=== PATIENT | female | born 1995 | race American Indian/Alaskan Native ===

== ENCOUNTER 2017-01-19 08:40 | Emergency (ER) | payer MEDICAID ==
[2017-01-19 09:35] LABS: Basophils % (Auto) 0.7 % (0.0-1.8); Eosinophils % (Auto) 1.7 % (0.0-4.3); Hemoglobin 13.1 gm/dl (10.1-14.3); Mean Corpuscular HGB Conc 34 % (30-34); Mean Corpuscular Hemoglobin 28 pg (28-32); Mean Corpuscular Volume 84 fl (79-97); Platelet Count 193 K/mm3 (140-440); Red Blood Count 4.66 M/mm3 (3.65-5.03); Red Cell Distribution Width 13.7 % (13.2-15.2); White Blood Count 9.8 K/mm3 (4.5-11.0)
[2017-01-19 09:36] LABS: Bilirubin,Urine NEG (Negative); Blood,Urine NEG (Negative); Ketones,Urine NEG (Negative); Leukocyte Esterase,Urine TR (Negative); Mucus,Urine 3+ /HPF; Nitrite,Urine NEG (Negative); Urobilinogen,Urine < 2.0 mg/dL (<2.0)
[2017-01-19 09:45] LABS: Alanine Aminotransferase 16 units/L (7-56); Albumin 4.3 g/dL (3.9-5); Albumin/Globulin Ratio 1.3 %; Alkaline Phosphatase 70 units/L (35-129); Anion Gap 16 mmol/L; BUN/Creatinine Ratio 17; Blood Urea Nitrogen 10 mg/dL (7-17); Calcium 9.2 mg/dL (8.4-10.2); Carbon Dioxide 24 mmol/L (22-30); Chloride 102.5 mmol/L (98-107); Glucose 70 mg/dL (65-100); Lipase 32 units/L (13-60); Potassium 3.8 mmol/L (3.6-5.0); Sodium 139 mmol/L (137-145); Total Protein 7.6 g/dL (6.3-8.2)
[2017-01-19] MEDS ORDERED: TORADOL IM ONE (18:57)
[2017-01-19] MEDS ORDERED: ZOFRAN IM ONE (18:57)
--- NOTE | 2017-01-19 19:02 | Emergency Department Report ---
ED Abdominal Pain HPI - General Chief Complaint: Abdominal Pain Stated Complaint: ABDOMINAL PAIN, NAUSEA, HEADACHE Time Seen by Provider: 01/19/17 18:22 Source: patient Mode of arrival: Ambulatory Limitations: No Limitations - History of Present Illness Initial Comments: Patient is 21 years old female with no significant past medical history came today with lower abdominal pain nausea vomiting and dysuria for the last 4 days. Patient denied any fever or diarrhea. MD Complaint: abdominal pain Location: suprapubic Radiation: none Migration to: no migration Severity: mild Severity scale (0 -10): 3 Quality: fullness, sharp Associated Symptoms: nausea, vomiting - Related Data Previous Rx's Medication Instructions Recorded Last Taken Type Ibuprofen [Motrin] 800 mg PO Q8HR PRN #14 tablet 01/15/16 Unknown Rx traMADol [Ultram 50 MG tab] 50 mg PO Q6HR PRN #12 tablet 01/15/16 Unknown Rx Allergies Allergy/AdvReac Type Severity Reaction Status Date / Time No Known Allergies Allergy Verified 06/01/15 20:20 ED Review of Systems ROS: Stated complaint: ABDOMINAL PAIN, NAUSEA, HEADACHE Other details as noted in HPI Comment: All other systems reviewed and negative Constitutional: denies: chills, fever Respiratory: denies: cough, orthopnea, shortness of breath, SOB with exertion, SOB at rest Gastrointestinal: abdominal pain, nausea, vomiting. denies: diarrhea, constipation, hematemesis, melena, hematochezia Genitourinary: urgency, dysuria, frequency Skin: denies: rash, lesions Neurological: denies: headache, weakness ED Past Medical Hx - Past Medical History Previous Medical History?: No Hx Headaches / Migraines: Yes - Surgical History Past Surgical History?: No - Social History Smoking Status: Current Every Day Smoker Substance Use Type: None - Medications Home Medications: Home Medications Medication Instructions Recorded Confirmed Last Taken Type Ibuprofen [Motrin] 800 mg PO Q8HR PRN #14 tablet 01/15/16 Unknown Rx traMADol [Ultram 50 MG tab] 50 mg PO Q6HR PRN #12 tablet 01/15/16 Unknown Rx ED Physical Exam - General Limitations: No Limitations General appearance: alert, in no apparent distress - Head Head exam: Present: normocephalic - Eye Eye exam: Present: normal appearance - ENT ENT exam: Present: normal exam, mucous membranes moist - Neck Neck exam: Present: full ROM. Absent: tenderness, meningismus, lymphadenopathy , thyromegaly - Respiratory Respiratory exam: Present: normal lung sounds bilaterally. Absent: respiratory distress, wheezes, rales, rhonchi, chest wall tenderness, accessory muscle use, decreased breath sounds, prolonged expiratory - Cardiovascular Cardiovascular Exam: Present: regular rate, normal rhythm, normal heart sounds - GI/Abdominal GI/Abdominal exam: Present: soft, normal bowel sounds. Absent: distended, tenderness, guarding, rebound, rigid, organomegaly, mass, bruit, pulsatile mass - Extremities Exam Extremities exam: Present: normal inspection, full ROM, normal capillary refill - Back Exam Back exam: Present: normal inspection. Absent: tenderness, CVA tenderness (R), CVA tenderness (L) - Neurological Exam Neurological exam: Present: alert, oriented X3, CN II-XII intact, normal gait - Skin Skin exam: Present: warm, intact, normal color ED Course Vital Signs 01/19/17 08:49 Temperature 98.4 F Pulse Rate 75 Respiratory 18 Rate Blood Pressure 109/63 O2 Sat by Pulse 100 Oximetry ED Medical Decision Making - Lab Data Result diagrams: 01/19/17 09:05 01/19/17 09:05 Critical care attestation.: If time is entered above; I have spent that time in minutes in the direct care of this critically ill patient, excluding procedure time. ED Disposition Clinical Impression: Abdominal pain, UTI (urinary tract infection), Vomiting Disposition: -01 TO HOME OR SELFCARE Is pt being admited?: No Condition: Stable Instructions: Abdominal Pain (ED), Urinary Tract Infection in Women (ED) Referrals: PRIMARY CARE, [Primary Care Provider] - 3-5 Days
[2017-01-19 19:47] VITALS: BP 112/64
== END 2017-01-19 19:50 | disposition home or self-care (01) ==
LOC: ED 08:40
DX: N39.0 Urinary tract infection, site not specified (principal); R10.30 Lower abdominal pain, unspecified; R11.2 Nausea with vomiting, unspecified; G43.909 Migraine, unspecified, not intractable, without status migrainosus; F17.200 Nicotine dependence, unspecified, uncomplicated
CPT/HCPCS: 36415; 80053; 81001; 83690; 84703; 85025; 96372; 99283; J1885; J2405

== ENCOUNTER 2017-04-11 04:59 | Emergency (ER) | payer SELFPAY ==
[2017-04-11 05:16] VITALS: BP 108/67
[2017-04-11 06:13] LABS: Basophils # (Auto) 0.1 K/mm3 (0.0-0.1); Basophils % (Auto) 0.7 % (0.0-1.8); Eosinophils # (Auto) 0.5 K/mm3 (0.0-0.4); Eosinophils % (Auto) 6.4 % (0.0-4.3); Hematocrit 42.4 % (30.3-42.9); Hemoglobin 13.8 gm/dl (10.1-14.3); Lymphocytes # (Auto) 3.8 K/mm3 (1.2-5.4); Lymphocytes % (Auto) 48.5 % (13.4-35.0); Mean Corpuscular HGB Conc 33 % (30-34); Mean Corpuscular Hemoglobin 28 pg (28-32); Mean Corpuscular Volume 85 fl (79-97); Monocytes # (Auto) 0.7 K/mm3 (0.0-0.8); Monocytes % (Auto) 9.1 % (0.0-7.3); Platelet Count 247 K/mm3 (140-440); Red Blood Count 5.01 M/mm3 (3.65-5.03)
[2017-04-11 06:28] LABS: Alanine Aminotransferase 11 units/L (7-56); Albumin 4.5 g/dL (3.9-5); BUN/Creatinine Ratio 16; Blood Urea Nitrogen 13 mg/dL (7-17); Calcium 9.8 mg/dL (8.4-10.2); Hemolysis Index 20
[2017-04-11 07:48] LABS: Bacteria,Urine 1+ /HPF (Negative); Bilirubin,Urine NEG (Negative); Blood,Urine NEG (Negative); Color,Urine Yellow (Yellow); Mucus,Urine 1+ /HPF; Nitrite,Urine NEG (Negative); Protein,Urine <15 mg/dL mg/dL (Negative); Urobilinogen,Urine < 2.0 mg/dL (<2.0)
--- NOTE | 2017-04-11 11:26 | Emergency Department Report ---
ED General Adult HPI - General Chief complaint: Abdominal Pain Stated complaint: ABD PAIN; H/A; N/V Source: patient Mode of arrival: Ambulatory Limitations: No Limitations - History of Present Illness Initial comments: 21 yo female presents with SIDDIQUI, n/v and abdominal pain for one week. Mild symptoms. Hx of abdominal pain. Has had colonoscopy to rule out Crohn's dz. Has hx of anemia and migraine headche. Bilateral lower abdominal pain intermittent, colicky. Gradual onset. No association. Crampy. - Related Data Previous Rx's Medication Instructions Recorded Last Taken Type Ibuprofen [Motrin] 800 mg PO Q8HR PRN #14 tablet 01/15/16 Unknown Rx traMADol [Ultram 50 MG tab] 50 mg PO Q6HR PRN #12 tablet 01/15/16 Unknown Rx Ciprofloxacin HCl [Ciprofloxacin 500 mg PO Q12H #14 tab 01/19/17 Unknown Rx TAB] Naproxen [Naprosyn] 500 mg PO BID #14 tablet 01/19/17 Unknown Rx Ondansetron [Zofran Odt] 4 mg PO Q8HR PRN #14 tab.rapdis 01/19/17 Unknown Rx Allergies Allergy/AdvReac Type Severity Reaction Status Date / Time No Known Allergies Allergy Verified 06/01/15 20:20 ED Review of Systems ROS: Stated complaint: ABD PAIN; H/A; N/V Other details as noted in HPI Comment: All other systems reviewed and negative Constitutional: denies: fever, malaise Respiratory: denies: cough Cardiovascular: denies: chest pain ED Past Medical Hx - Past Medical History Previous Medical History?: Yes Hx Headaches / Migraines: Yes Additional medical history: anemia, migraine SIDDIQUI - Surgical History Past Surgical History?: No - Social History Smoking Status: Current Every Day Smoker Substance Use Type: Marijuana - Medications Home Medications: Home Medications Medication Instructions Recorded Confirmed Last Taken Type Ibuprofen [Motrin] 800 mg PO Q8HR PRN #14 tablet 01/15/16 Unknown Rx traMADol [Ultram 50 MG tab] 50 mg PO Q6HR PRN #12 tablet 01/15/16 Unknown Rx Ciprofloxacin HCl [Ciprofloxacin 500 mg PO Q12H #14 tab 01/19/17 Unknown Rx TAB] Naproxen [Naprosyn] 500 mg PO BID #14 tablet 01/19/17 Unknown Rx Ondansetron [Zofran Odt] 4 mg PO Q8HR PRN #14 tab.rapdis 01/19/17 Unknown Rx ED Physical Exam - General Limitations: No Limitations General appearance: alert, in no apparent distress - Head Head exam: Present: atraumatic, normocephalic - Eye Eye exam: Present: normal appearance - ENT ENT exam: Present: mucous membranes moist - Neck Neck exam: Present: normal inspection. Absent: meningismus - Respiratory Respiratory exam: Present: normal lung sounds bilaterally. Absent: respiratory distress, wheezes, rales, rhonchi - Cardiovascular Cardiovascular Exam: Present: regular rate, normal rhythm. Absent: systolic murmur, diastolic murmur, rubs, gallop - GI/Abdominal GI/Abdominal exam: Present: soft, normal bowel sounds. Absent: distended, tenderness, guarding, rebound - Extremities Exam Extremities exam: Present: normal inspection. Absent: full ROM, tenderness - Back Exam Back exam: Present: normal inspection. Absent: full ROM, tenderness - Neurological Exam Neurological exam: Present: alert, oriented X3 - Psychiatric Psychiatric exam: Present: normal affect, normal mood - Skin Skin exam: Present: warm, dry, intact, normal color. Absent: rash ED Course Vital Signs 04/11/17 05:11 Temperature 98.1 F Pulse Rate 79 Respiratory 18 Rate Blood Pressure 108/67 O2 Sat by Pulse 99 Oximetry ED Medical Decision Making - Lab Data Result diagrams: 04/11/17 05:21 04/11/17 05:21 - Medical Decision Making Ms. Donato has hx of migraine SIDDIQUI and likely IBS according to patient's hx. I suspect viral illness exacerbating these conditions. I have reassurance and supportive care instructions. Critical care attestation.: If time is entered above; I have spent that time in minutes in the direct care of this critically ill patient, excluding procedure time. ED Disposition Clinical Impression: Acute viral disease, Migraine headache, Abdominal pain Disposition: - TO HOME OR SELFCARE Is pt being admited?: No Does the pt Need Aspirin: No Condition: Stable Instructions: Abdominal Pain (ED) Referrals: PRIMARY CARE, [Primary Care Provider] - 3-5 Days Time of Disposition: 11:28
== END 2017-04-11 11:37 | disposition home or self-care (01) ==
LOC: ED 04:59
DX: B34.9 Viral infection, unspecified (principal); G43.909 Migraine, unspecified, not intractable, without status migrainosus; R10.31 Right lower quadrant pain; R10.32 Left lower quadrant pain; F17.200 Nicotine dependence, unspecified, uncomplicated; F12.10 Cannabis abuse, uncomplicated; Z86.2 Personal history of diseases of the blood and blood-forming organs and certain disorders involving the immune mechanism
CPT/HCPCS: 36415; 80053; 81001; 84703; 85025; 99283

== ENCOUNTER 2017-09-16 22:38 | Emergency (ER) | payer SELFPAY ==
[2017-09-16] MEDS ORDERED: NACL 0.9% 1000 ML 1,000 ML IV ONE (23:32)
[2017-09-17] LABS: Basophils # (Auto) 0.1 K/mm3 (0.0-0.1); Basophils % (Auto) 0.9 % (0.0-1.8); Eosinophils # (Auto) 0.3 K/mm3 (0.0-0.4); Eosinophils % (Auto) 3.3 % (0.0-4.3); Hemoglobin 12.8 gm/dl (10.1-14.3); Lymphocytes # (Auto) 3.7 K/mm3 (1.2-5.4); Lymphocytes % (Auto) 46.1 % (13.4-35.0); Mean Corpuscular HGB Conc 33 % (30-34); Mean Corpuscular Hemoglobin 28 pg (28-32); Mean Corpuscular Volume 85 fl (79-97); Monocytes # (Auto) 0.9 K/mm3 (0.0-0.8); Monocytes % (Auto) 10.5 % (0.0-7.3); Platelet Count 237 K/mm3 (140-440); Red Blood Count 4.61 M/mm3 (3.65-5.03); Red Cell Distribution Width 14.7 % (13.2-15.2)
[2017-09-17 00:18] LABS: Alanine Aminotransferase 13 units/L (7-56); Albumin 4.8 g/dL (3.9-5); BUN/Creatinine Ratio 16; Blood Urea Nitrogen 11 mg/dL (7-17); Calcium 9.9 mg/dL (8.4-10.2); Hemolysis Index 1; Lipase 31 units/L (13-60)
--- NOTE | 2017-09-17 00:31 | Emergency Department Report ---
ED Abdominal Pain HPI - General Chief Complaint: Abdominal Pain Stated Complaint: PELVIC PAIN Time Seen by Provider: 09/17/17 00:22 Source: patient Mode of arrival: Ambulatory Limitations: No Limitations - History of Present Illness Initial Comments: Randa is a pleasant 22 yo female who presents with mild abdominal pain and vaginal discharge after having sex 2 weeks ago. She is concerned for possible STD. greenish discharge with vaginal irritation when urination MD Complaint: abdominal pain -: Gradual, week(s) (2) Location: suprapubic Radiation: none Severity: mild Consistency: constant - Related Data Previous Rx's Medication Instructions Recorded Last Taken Type Ibuprofen [Motrin] 800 mg PO Q8HR PRN #14 tablet 01/15/16 Unknown Rx traMADol [Ultram 50 MG tab] 50 mg PO Q6HR PRN #12 tablet 01/15/16 Unknown Rx Ciprofloxacin HCl [Ciprofloxacin 500 mg PO Q12H #14 tab 01/19/17 Unknown Rx TAB] Naproxen [Naprosyn] 500 mg PO BID #14 tablet 01/19/17 Unknown Rx Ondansetron [Zofran Odt] 4 mg PO Q8HR PRN #14 tab.rapdis 01/19/17 Unknown Rx Allergies Allergy/AdvReac Type Severity Reaction Status Date / Time No Known Allergies Allergy Verified 06/01/15 20:20 ED Review of Systems ROS: Stated complaint: PELVIC PAIN Other details as noted in HPI Comment: All other systems reviewed and negative Constitutional: denies: fever, malaise Cardiovascular: denies: chest pain ED Past Medical Hx - Past Medical History Previous Medical History?: Yes Hx GERD: Yes Hx Headaches / Migraines: Yes Additional medical history: anemia, migraine SIDDIQUI - Surgical History Past Surgical History?: No - Social History Smoking Status: Current Every Day Smoker Substance Use Type: Alcohol - Medications Home Medications: Home Medications Medication Instructions Recorded Confirmed Last Taken Type Ibuprofen [Motrin] 800 mg PO Q8HR PRN #14 tablet 01/15/16 Unknown Rx traMADol [Ultram 50 MG tab] 50 mg PO Q6HR PRN #12 tablet 01/15/16 Unknown Rx Ciprofloxacin HCl [Ciprofloxacin 500 mg PO Q12H #14 tab 01/19/17 Unknown Rx TAB] Naproxen [Naprosyn] 500 mg PO BID #14 tablet 01/19/17 Unknown Rx Ondansetron [Zofran Odt] 4 mg PO Q8HR PRN #14 tab.rapdis 01/19/17 Unknown Rx ED Physical Exam - General Limitations: No Limitations General appearance: alert, in no apparent distress, other (smiling happy comfortable) - Head Head exam: Present: atraumatic, normocephalic - Eye Eye exam: Present: normal appearance - ENT ENT exam: Present: mucous membranes moist - Neck Neck exam: Present: normal inspection. Absent: tenderness, meningismus - Respiratory Respiratory exam: Present: normal lung sounds bilaterally. Absent: respiratory distress, wheezes, rales, rhonchi - Cardiovascular Cardiovascular Exam: Present: regular rate, normal rhythm, normal heart sounds. Absent: bradycardia, tachycardia, systolic murmur, diastolic murmur, rubs, gallop - GI/Abdominal GI/Abdominal exam: Present: soft, normal bowel sounds. Absent: distended, tenderness, guarding, rebound - Extremities Exam Extremities exam: Present: normal inspection - Back Exam Back exam: Present: normal inspection - Neurological Exam Neurological exam: Present: alert, oriented X3 - Psychiatric Psychiatric exam: Present: normal affect, normal mood - Skin Skin exam: Present: warm, dry, intact, normal color. Absent: rash ED Course Vital Signs 09/16/17 23:33 Temperature 99.0 F Pulse Rate 95 H Respiratory 18 Rate Blood Pressure 128/71 O2 Sat by Pulse 100 Oximetry ED Medical Decision Making - Lab Data Result diagrams: 09/16/17 23:37 09/16/17 23:37 - Medical Decision Making Randa presents with 2 weeks of lower abdomen pain and vaginal discharge. I do not suspect PID from presentation. NO fever. Mild pain. Treated for cervicitis and vaginitis with medication provided in the ED. Referred to health department for STD testing. Urinalysis without indication of infection. Urine test negative. Critical care attestation.: If time is entered above; I have spent that time in minutes in the direct care of this critically ill patient, excluding procedure time. ED Disposition Clinical Impression: Cervicitis, Vaginitis Disposition: TO HOME OR SELFCARE Is pt being admited?: No Does the pt Need Aspirin: No Condition: Stable Instructions: Cervicitis (ED), Vaginitis (ED) Referrals: [facility] [Outside] - 3-5 Days Forms: STI Treatment and Prevention Time of Disposition: 01:00
[2017-09-17 00:41] LABS: HCG Qualitative,Urine Negative (Negative)
[2017-09-17 00:42] LABS: Bilirubin,Urine NEG (Negative); Blood,Urine NEG (Negative); Color,Urine Yellow (Yellow); Mucus,Urine FEW /HPF; Protein,Urine <15 mg/dL mg/dL (Negative); RBC,Urine < 1.0 /HPF (0.0-6.0)
[2017-09-17] MEDS ORDERED: ZOFRAN ODT PO ONE (00:57)
[2017-09-17] MEDS ORDERED: ROCEPHIN IM ONE (00:57)
[2017-09-17] MEDS ORDERED: XYLOCAINE 1% MPF 5 mL INFILTRATI ONE (00:57)
[2017-09-17] MEDS ORDERED: FLAGYL PO ONE (00:57)
[2017-09-17] MEDS ORDERED: ZITHROMAX PO ONE (00:57)
[2017-09-17] MEDS ORDERED: DIFLUCAN PO ONE (00:58)
[2017-09-17 01:52] VITALS: BP 120/68
== END 2017-09-17 02:06 | disposition home or self-care (01) ==
LOC: ED 22:38
DX: N76.0 Acute vaginitis (principal); N72 Inflammatory disease of cervix uteri; K21.9 Gastro-esophageal reflux disease without esophagitis; G43.909 Migraine, unspecified, not intractable, without status migrainosus; F17.200 Nicotine dependence, unspecified, uncomplicated; Z86.2 Personal history of diseases of the blood and blood-forming organs and certain disorders involving the immune mechanism
CPT/HCPCS: 36415; 80053; 81001; 81025; 83690; 85025; 96372; 99283; J0696; Q0162

== ENCOUNTER 2018-07-02 22:45 | Emergency (ER) | payer OTHER ==
[2018-07-02 23:13] VITALS: BP 114/65
[2018-07-03 01:59] LABS: HCG Qualitative,Urine Negative (Negative)
[2018-07-03 02:09] LABS: Bilirubin,Urine NEG (Negative); Blood,Urine SM (Negative); Calcium Oxalate Crystals,Urine 2+; Color,Urine Yellow (Yellow); Mucus,Urine 3+ /HPF; Urobilinogen,Urine < 2.0 mg/dL (<2.0)
--- NOTE | 2018-07-03 03:02 | Emergency Department Report ---
ED Female HPI - General Chief complaint: Urogenital-Female Stated complaint: BURNING WHILE URINATING Time Seen by Provider: 07/03/18 02:45 Source: patient Mode of arrival: Ambulatory Limitations: No Limitations - History of Present Illness Initial comments: 22-year-old -[place] female presents to the emergency room for burning on urination and vaginal discharge. MD Complaint: vaginal discharge -: days(s) (2) Consistency: intermittent Are you Now?: No Associated Symptoms: vaginal discharge - Related Data Sexually active: Yes (both females and males) Previous Rx's Medication Instructions Recorded Last Taken Type Amoxicillin [Trimox CAP] 500 mg PO BID #20 capsule 02/12/18 Unknown Rx Nitrofurantoin Monohyd/M-Cryst 100 mg PO BID #14 capsule 07/03/18 Unknown Rx [Macrobid 100 mg Capsule] Terconazole [Terazol 7] 1 applic VG QHS 7 Days #7 07/03/18 Unknown Rx cream.appl metroNIDAZOLE [Metronidazole] 500 mg PO BID #14 tablet 07/03/18 Unknown Rx Allergies Allergy/AdvReac Type Severity Reaction Status Date / Time No Known Allergies Allergy Verified 06/01/15 20:20 ED Review of Systems ROS: Stated complaint: BURNING WHILE URINATING Other details as noted in HPI ED Past Medical Hx - Past Medical History Previous Medical History?: Yes Hx GERD: Yes Hx Headaches / Migraines: Yes Additional medical history: anemia, migraine SIDDIQUI. phosphorous depletion - Surgical History Past Surgical History?: No - Social History Smoking Status: Current Every Day Smoker Substance Use Type: None - Medications Home Medications: Home Medications Medication Instructions Recorded Confirmed Last Taken Type Amoxicillin [Trimox CAP] 500 mg PO BID #20 capsule 02/12/18 Unknown Rx Nitrofurantoin Monohyd/M-Cryst 100 mg PO BID #14 capsule 07/03/18 Unknown Rx [Macrobid 100 mg Capsule] Terconazole [Terazol 7] 1 applic VG QHS 7 Days #7 07/03/18 Unknown Rx cream.appl metroNIDAZOLE [Metronidazole] 500 mg PO BID #14 tablet 07/03/18 Unknown Rx ED Physical Exam - General Limitations: No Limitations General appearance: alert, in no apparent distress - Head Head exam: Present: atraumatic, normocephalic ED Course Vital Signs 07/02/18 23:08 Temperature 98.8 F Pulse Rate 107 H Respiratory 18 Rate Blood Pressure 114/65 O2 Sat by Pulse 100 Oximetry Critical care attestation.: If time is entered above; I have spent that time in minutes in the direct care of this critically ill patient, excluding procedure time. ED Disposition Clinical Impression: UTI (urinary tract infection) Qualifiers: Urinary tract infection type: site unspecified Hematuria presence: without hematuria Qualified Code(s): N39.0 - Urinary tract infection, site not specified Disposition: TO HOME OR SELFCARE Is pt being admited?: No Does the pt Need Aspirin: No Condition: Stable Instructions: Urinary Tract Infection in Women (ED), Dysuria (ED), Bacterial Vaginosis (ED), Vulvovaginal Candidiasis (ED) Additional Instructions: Take medications as prescribed. Follow-up with a [facility] provider from this persist or gets worse. Prescriptions: Terconazole [Terazol 7] 1 applic VG QHS 7 Days #7 cream.appl Nitrofurantoin Monohyd/M-Cryst [Macrobid 100 mg Capsule] 100 mg PO BID #14 capsule metroNIDAZOLE [Metronidazole] 500 mg PO BID #14 tablet Referrals: BRIAN JACOBS MD [Primary Care Provider] - 3-5 Days
== END 2018-07-03 07:07 | disposition home or self-care (01) ==
LOC: ED 22:45
DX: N39.0 Urinary tract infection, site not specified (principal); K21.9 Gastro-esophageal reflux disease without esophagitis; G43.909 Migraine, unspecified, not intractable, without status migrainosus; F17.200 Nicotine dependence, unspecified, uncomplicated
CPT/HCPCS: 81001; 81025; 87210; 87591

== ENCOUNTER 2018-08-15 13:54 | Emergency (ER) | payer SELFPAY ==
--- NOTE | 2018-08-15 14:26 | Event Note ---
ED Screening Note ED Screening Note: pt states she is currently is on her cycle no dysuria no vaginal discharge +itching no vaginal burning, no vaginal lesions, no blisters states that someone she is having intercourse with has a STD no PCP no PMHx no allergies to meds This initial assessment/diagnostic orders/clinical plan/treatment(s) is/are subject to change based on patients health status, clinical progression and re- assessment by fellow clinical providers in the ED. Further treatment and workup at subsequent clinical providers discretion. Patient/guardian urged not to elope from the ED as their condition may be serious if not clinically assessed and managed. Initial orders include: UA, urine preg
[2018-08-15 15:04] LABS: Bilirubin,Urine NEG (Negative); Blood,Urine LG (Negative); Color,Urine Yellow (Yellow); Mucus,Urine 3+ /HPF; Urobilinogen,Urine < 2.0 mg/dL (<2.0)
[2018-08-15 15:13] LABS: HCG Qualitative,Urine Negative (Negative)
--- NOTE | 2018-08-15 15:50 | Emergency Department Report ---
ED Female HPI - General Chief complaint: Vaginal Bleeding Stated complaint: ABD PAIN/DISCHARGE/ITCHING Time Seen by Provider: 08/15/18 14:25 Source: patient Mode of arrival: Ambulatory Limitations: No Limitations - History of Present Illness Initial comments: 23-year-old -[place] female presents to the emergency room complaint of period that started 08/14/2018 that is light. Patient also admits to vaginal discharge and possible STD exposure. Patient reports that her boyfriend told her that he had tested positive for either gonorrhea or chlamydia not sure. Patient denies any allergies to medications. Patient denies any dysuria. MD Complaint: possible STD -: days(s) Are you Now?: No Last Menstrual Period: 08/14/18 EDC: 05/21/19 Associated Symptoms: vaginal discharge, vaginal bleeding - Related Data Sexually active: Yes (unprotected men) Previous Rx's Medication Instructions Recorded Last Taken Type Amoxicillin [Trimox CAP] 500 mg PO BID #20 capsule 02/12/18 Unknown Rx Nitrofurantoin Monohyd/M-Cryst 100 mg PO BID #14 capsule 07/03/18 Unknown Rx [Macrobid 100 mg Capsule] Terconazole [Terazol 7] 1 applic VG QHS 7 Days #7 07/03/18 Unknown Rx cream.appl metroNIDAZOLE [Metronidazole] 500 mg PO BID #14 tablet 07/03/18 Unknown Rx Azithromycin [Zithromax TAB] 1,000 mg PO ONCE #4 tablet 08/15/18 Unknown Rx metroNIDAZOLE [Flagyl] 500 mg PO Q8HR #21 tablet 08/15/18 Unknown Rx Allergies Allergy/AdvReac Type Severity Reaction Status Date / Time No Known Allergies Allergy Verified 06/01/15 20:20 ED Review of Systems ROS: Stated complaint: ABD PAIN/DISCHARGE/ITCHING Other details as noted in HPI Comment: All other systems reviewed and negative ED Past Medical Hx - Past Medical History Previous Medical History?: Yes Hx GERD: Yes Hx Headaches / Migraines: Yes Additional medical history: anemia, migraine SIDDIQUI. phosphorous depletion - Surgical History Past Surgical History?: No - Social History Smoking Status: Never Smoker Substance Use Type: None - Medications Home Medications: Home Medications Medication Instructions Recorded Confirmed Last Taken Type Amoxicillin [Trimox CAP] 500 mg PO BID #20 capsule 02/12/18 Unknown Rx Nitrofurantoin Monohyd/M-Cryst 100 mg PO BID #14 capsule 07/03/18 Unknown Rx [Macrobid 100 mg Capsule] Terconazole [Terazol 7] 1 applic VG QHS 7 Days #7 07/03/18 Unknown Rx cream.appl metroNIDAZOLE [Metronidazole] 500 mg PO BID #14 tablet 07/03/18 Unknown Rx Azithromycin [Zithromax TAB] 1,000 mg PO ONCE #4 tablet 08/15/18 Unknown Rx metroNIDAZOLE [Flagyl] 500 mg PO Q8HR #21 tablet 08/15/18 Unknown Rx ED Physical Exam - General Limitations: No Limitations General appearance: alert, in no apparent distress ED Course Vital Signs 08/15/18 14:26 Temperature 98.7 F Pulse Rate 84 Respiratory 16 Rate Blood Pressure 114/82 [Left] O2 Sat by Pulse 96 Oximetry ED Medical Decision Making - Medical Decision Making 23-year-old female comes in reporting vaginal discharge abnormal. Similar like to be checked for STDs and she was told that her partner tested positive. Wet prep Chlamydia and gonorrhea sent to lab. Urinalysis showed the patient has 25 WBCs protein small amount of ketones. Patient be treated with Rocephin 500 mg IM and azithromycin 1000 mg and sent home on Flagyl 500 mg 3 times a day 7 days dispensed 21. Patient also instructed to follow-up the health department for further test negative HIV, herpes, hepatitis and syphilis. Patient verbalized understanding Critical care attestation.: If time is entered above; I have spent that time in minutes in the direct care of this critically ill patient, excluding procedure time. ED Disposition Clinical Impression: Concern about STD in female without diagnosis Disposition: -01 TO HOME OR SELFCARE Is pt being admited?: No Does the pt Need Aspirin: No Condition: Stable Instructions: Safe Sex (ED), Sexually Transmitted Diseases (ED) Additional Instructions: Complete antibiotics as prescribed. Refrain from having intercourse for the next 10 days and after you've been evaluated by the health department. Facies protection such as condoms when having intercourse. Prescriptions: metroNIDAZOLE [Flagyl] 500 mg PO Q8HR #21 tablet Azithromycin [Zithromax TAB] 1,000 mg PO ONCE #4 tablet Referrals: BRIAN JACOBS MD [Primary Care Provider] - 3-5 Days [facility] [Outside] - 3-5 Days [facility] [Outside] - [facility] - [facility] Days
[2018-08-15] MEDS ORDERED: XYLOCAINE 1% MPF 5 mL INFILTRATI ONE (17:14)
[2018-08-15] MEDS ORDERED: ROCEPHIN IM ONE (17:14)
[2018-08-15] MEDS ORDERED: ZITHROMAX PO ONE (17:14)
[2018-08-15 18:56] VITALS: BP 110/76
== END 2018-08-15 18:00 | disposition home or self-care (01) ==
LOC: ED 13:54
DX: N89.8 Other specified noninflammatory disorders of vagina (principal); N93.9 Abnormal uterine and vaginal bleeding, unspecified
CPT/HCPCS: 81001; 81025; 87076; 87086; 87186; 87210; 87591; 96372; 99283; J0696

== ENCOUNTER 2018-09-05 23:33 | Emergency (ER) | payer OTHER ==
[2018-09-06 00:43] LABS: Bacteria,Urine 1+ /HPF (Negative); Bilirubin,Urine NEG (Negative); Blood,Urine SM (Negative); Color,Urine Yellow (Yellow); Mucus,Urine 3+ /HPF; Protein,Urine <15 mg/dL mg/dL (Negative); Urobilinogen,Urine < 2.0 mg/dL (<2.0)
[2018-09-06 00:48] LABS: HCG Qualitative,Urine Negative (Negative)
[2018-09-06] MEDS ORDERED: NACL 0.9% 1000 ML 1,000 ML IV ONE (01:13)
[2018-09-06] MEDS ORDERED: ZOFRAN IV ONE (01:13)
--- NOTE | 2018-09-06 01:21 | Emergency Department Report ---
ED Abdominal Pain HPI - General Chief Complaint: Abdominal Pain Stated Complaint: RIGHT LOWER BACK PAIN LOWER ABD PAIN Time Seen by Provider: 09/06/18 00:52 Source: patient Mode of arrival: Ambulatory Limitations: No Limitations - History of Present Illness Initial Comments: Patient is a 23-year-old female who presents to the emergency room with complai nts of lower abdominal pain that began 2-3 days ago. She has associated lower back pain, urinary frequency, nausea. She denies any vomiting, diarrhea, fever, dysuria, vaginal discharge, vaginal complaints. She had a normal bowel movement this morning. Her last menstrual cycle was August 18. She denies any past medical history. Denies any abdominal surgeries. She denies any allergies to medications or daily medications. - Related Data Previous Rx's Medication Instructions Recorded Last Taken Type Amoxicillin [Trimox CAP] 500 mg PO BID #20 capsule 02/12/18 Unknown Rx Nitrofurantoin Monohyd/M-Cryst 100 mg PO BID #14 capsule 07/03/18 Unknown Rx [Macrobid 100 mg Capsule] Terconazole [Terazol 7] 1 applic VG QHS 7 Days #7 07/03/18 Unknown Rx cream.appl metroNIDAZOLE [Metronidazole] 500 mg PO BID #14 tablet 07/03/18 Unknown Rx Azithromycin [Zithromax TAB] 1,000 mg PO ONCE #4 tablet 08/15/18 Unknown Rx metroNIDAZOLE [Flagyl] 500 mg PO Q8HR #21 tablet 08/15/18 Unknown Rx Ciprofloxacin HCl [Ciprofloxacin 250 mg PO BID 3 Days #6 tablet 09/06/18 Unknown Rx TAB] Famotidine [Pepcid] 20 mg PO BID #60 tablet 09/06/18 Unknown Rx Allergies Allergy/AdvReac Type Severity Reaction Status Date / Time No Known Allergies Allergy Verified 06/01/15 20:20 ED Review of Systems ROS: Stated complaint: RIGHT LOWER BACK PAIN LOWER ABD PAIN Other details as noted in HPI Comment: All other systems reviewed and negative ED Past Medical Hx - Past Medical History Previous Medical History?: Yes Hx GERD: Yes Hx Headaches / Migraines: Yes Additional medical history: anemia, migraine SIDDIQUI. phosphorous depletion - Surgical History Past Surgical History?: No - Social History Smoking Status: Never Smoker Substance Use Type: Marijuana - Medications Home Medications: Home Medications Medication Instructions Recorded Confirmed Last Taken Type Amoxicillin [Trimox CAP] 500 mg PO BID #20 capsule 02/12/18 Unknown Rx Nitrofurantoin Monohyd/M-Cryst 100 mg PO BID #14 capsule 07/03/18 Unknown Rx [Macrobid 100 mg Capsule] Terconazole [Terazol 7] 1 applic VG QHS 7 Days #7 07/03/18 Unknown Rx cream.appl metroNIDAZOLE [Metronidazole] 500 mg PO BID #14 tablet 07/03/18 Unknown Rx Azithromycin [Zithromax TAB] 1,000 mg PO ONCE #4 tablet 08/15/18 Unknown Rx metroNIDAZOLE [Flagyl] 500 mg PO Q8HR #21 tablet 08/15/18 Unknown Rx Ciprofloxacin HCl [Ciprofloxacin 250 mg PO BID 3 Days #6 tablet 09/06/18 Unknown Rx TAB] Famotidine [Pepcid] 20 mg PO BID #60 tablet 09/06/18 Unknown Rx ED Physical Exam - General Limitations: No Limitations General appearance: alert, in no apparent distress - Head Head exam: Present: atraumatic, normocephalic - Eye Eye exam: Present: normal appearance, PERRL - ENT ENT exam: Present: mucous membranes moist - Respiratory Respiratory exam: Present: normal lung sounds bilaterally. Absent: respiratory distress, wheezes, rales, rhonchi, stridor, chest wall tenderness, accessory muscle use, decreased breath sounds, prolonged expiratory - Cardiovascular Cardiovascular Exam: Present: regular rate, normal rhythm, normal heart sounds. Absent: systolic murmur, diastolic murmur, rubs, gallop - GI/Abdominal GI/Abdominal exam: Present: soft, tenderness (LLQ, suprapubic ), normal bowel sounds. Absent: distended, guarding, rebound, rigid - Back Exam Back exam: Absent: CVA tenderness (R), CVA tenderness (L) - Neurological Exam Neurological exam: Present: alert, oriented X3 - Psychiatric Psychiatric exam: Present: normal affect, normal mood - Skin Skin exam: Present: warm, dry, intact ED Course Vital Signs 09/05/18 09/06/18 23:38 03:56 Temperature 98.6 F Pulse Rate 101 H 67 Respiratory 18 16 Rate Blood Pressure 109/70 Blood Pressure 99/56 [Right] O2 Sat by Pulse 99 100 Oximetry ED Medical Decision Making - Lab Data Result diagrams: 09/06/18 01:23 09/06/18 01:23 Lab Results 06/28/19 06/29/19 06/29/19 Range/Units Unknown 01:23 01:23 WBC 7.3 (4.5-11.0) K/mm3 RBC 4.74 (3.65-5.03) M/mm3 Hgb 13.5 (10.1-14.3) gm/dl Hct 40.9 (30.3-42.9) % MCV 86 (79-97) fl MCH 28 (28-32) pg MCHC 33 (30-34) % RDW 15.0 (13.2-15.2) % Plt Count 217 (140-440) K/mm3 Lymph % (Auto) 44.4 H (13.4-35.0) % [place] % (Auto) 8.7 H (0.0-7.3) % Eos % (Auto) 3.3 (0.0-4.3) % Baso % (Auto) 0.9 (0.0-1.8) % Lymph # 3.3 (1.2-5.4) K/mm3 [place] # 0.6 (0.0-0.8) K/mm3 Eos # 0.2 (0.0-0.4) K/mm3 Baso # 0.1 (0.0-0.1) K/mm3 Seg Neutrophils % 42.7 (40.0-70.0) % Seg Neutrophils # 3.1 (1.8-7.7) K/mm3 Sodium 141 (137-145) mmol/L Potassium 3.7 (3.6-5.0) mmol/L Chloride 100.6 (98-107) mmol/L Carbon Dioxide 28 (22-30) mmol/L Anion Gap 16 mmol/L BUN 14 (7-17) mg/dL Creatinine 0.8 (0.7-1.2) mg/dL Estimated GFR > 60 ml/min BUN/Creatinine Ratio 18 % Glucose 75 (65-100) mg/dL Calcium 9.8 (8.4-10.2) mg/dL Total Bilirubin 0.20 (0.1-1.2) mg/dL AST 16 (5-40) units/L ALT 21 (7-56) units/L Alkaline Phosphatase 59 (35-129) units/L Total Protein 7.4 (6.3-8.2) g/dL Albumin 4.5 (3.9-5) g/dL Albumin/Globulin Ratio 1.6 % Lipase 22 (13-60) units/L Urine Color Yellow (Yellow) Urine Turbidity Cloudy (Clear) Urine pH 5.0 (5.0-7.0) Ur Specific [place] 1.028 (1.003-1.030) Urine Protein <15 mg/dl (Negative) mg/dL Urine Glucose (UA) Neg (Negative) mg/dL Urine Ketones Neg (Negative) mg/dL Urine Blood Sm (Negative) Urine Nitrite Neg (Negative) Urine Bilirubin Neg (Negative) Urine Urobilinogen < 2.0 (<2.0) mg/dL Ur Leukocyte Esterase Neg (Negative) Urine WBC (Auto) 8.0 H (0.0-6.0) /HPF Urine RBC (Auto) 4.0 (0.0-6.0) /HPF U Epithel Cells (Auto) 13.0 (0-13.0) /HPF Urine Bacteria (Auto) 1+ (Negative) /HPF Urine Mucus 3+ /HPF Urine HCG, Qual Negative (Negative) Vital Signs 09/05/18 09/06/18 23:38 03:56 Temperature 98.6 F Pulse Rate 101 H 67 Respiratory 18 16 Rate Blood Pressure 109/70 Blood Pressure 99/56 [Right] O2 Sat by Pulse 99 100 Oximetry - Radiology Data Radiology results: report reviewed PROCEDURE: CT ABDOMEN PELVIS W CON TECHNIQUE: Computerized axial tomography of the abdomen and pelvis was performed after the administration of IV iodinated nonionic contrast. CT DOSE LENGTH PRODUCT: 926.1 mGycm HISTORY: LLQ, suprapubic abd pain COMPARISONS: None . FINDINGS: Contrast-enhanced CT of the abdomen and pelvis was performed. The heart is normal in size. The lung bases appear clear. ABDOMEN: The contrast-enhanced liver, spleen, adrenal glands, pancreas, kidneys are unremarkable. The gallbladder is within normal limits. There is wall thickening of the gastric antrum, axial image 66, consistent with gastritis. There is no small or large bowel obstruction. Pelvis: The appendix is probably seen, axial image 112, coronal images 49-50. There is no evidence of appendicitis. There is no evidence of diverticulitis. There is no adnexal mass. There is some mild stranding anterior the urinary bladder, axial images 145-146 and cystitis is not excluded. IMPRESSION: ABDOMEN: No bowel obstruction Pelvis: Trace stranding anterior urinary bladder, suspicious for cystitis No evidence of diverticulitis This document is electronically signed by Yeimi Garibay MD., September 06 2018 02:45:47 AM ET Transcribed By: BETO Dictated By: YEIMI GARIBAY MD Electronically Authenticated By: YEIMI GARIBAY MD Signed Date/Time: 09/06/18 0248 - Medical Decision Making Patient is a 23-year-old female who presents to the emergency room with complaints of lower abdominal pain that began 2-3 days ago. She has associated lower back pain, urinary frequency, nausea. She denies any vomiting, diarrhea, fever, dysuria, vaginal discharge, vaginal complaints. She had a normal bowel movement this morning. Her last menstrual cycle was August 18. She denies any past medical history. Denies any abdominal surgeries. She denies any allergies to medications or daily medications. VSS. on exam: suprapubic and LLQ abd tenderness to palpation. labs WNL. UA with WBCs, no leukocyte esterase or nitrites. CT abd/pelvis shows gastritis and cystitis. given 1L of normal saline and zofran while in the ED. pt given prescription for ciprofloxacin and pepcid. advised to please take medication as prescribed. Please follow the diet for gastritis. Please continue to drink plenty of water. Follow-up with primary care doctor the next 2-3 days. Returned to the emergency room for any new or worsening symptoms. - Differential Diagnosis UTI, colitis, ovarian cyst, appendicitis, constipation, diverticulitis Critical care attestation.: If time is entered above; I have spent that time in minutes in the direct care of this critically ill patient, excluding procedure time. ED Disposition Clinical Impression: Abdominal pain Qualifiers: Abdominal location: lower abdomen, unspecified Qualified Code(s): R10.30 - Lower abdominal pain, unspecified UTI (urinary tract infection) Qualifiers: Urinary tract infection type: acute cystitis Hematuria presence: without hematuria Qualified Code(s): N30.00 - Acute cystitis without hematuria Gastritis Qualifiers: Gastritis type: unspecified gastritis Chronicity: acute Gastritis bleeding: without bleeding Qualified Code(s): K29.00 - Acute gastritis without bleeding Disposition: - TO HOME OR SELFCARE Is pt being admited?: No Does the pt Need Aspirin: No Condition: Stable Instructions: Gastritis (ED), Urinary Tract Infection in Women (ED), Diet for Ulcers and Gastritis (ED), Abdominal Pain (ED) Additional Instructions: Please take medication as prescribed. Please follow the diet for gastritis. Please continue to drink plenty of water. Follow-up with primary care doctor the next 2-3 days. Returned to the emergency room for any new or worsening symptoms. Prescriptions: Ciprofloxacin HCl [Ciprofloxacin TAB] 250 mg PO BID 3 Days #6 tablet Famotidine [Pepcid] 20 mg PO BID #60 tablet Referrals: BRIAN JACOBS MD [Primary Care Provider] - 2-3 Days [facility] [Outside] - 2-3 Days [facility] [Outside] - 2-3 Days Time of Disposition: 02:59 Print Language: KHMER
[2018-09-06 01:31] LABS: Basophils # (Auto) 0.1 K/mm3 (0.0-0.1); Basophils % (Auto) 0.9 % (0.0-1.8); Eosinophils # (Auto) 0.2 K/mm3 (0.0-0.4); Eosinophils % (Auto) 3.3 % (0.0-4.3); Hematocrit 40.9 % (30.3-42.9); Hemoglobin 13.5 gm/dl (10.1-14.3); Lymphocytes # (Auto) 3.3 K/mm3 (1.2-5.4); Lymphocytes % (Auto) 44.4 % (13.4-35.0); Mean Corpuscular HGB Conc 33 % (30-34); Mean Corpuscular Volume 86 fl (79-97); Monocytes # (Auto) 0.6 K/mm3 (0.0-0.8); Monocytes % (Auto) 8.7 % (0.0-7.3); Platelet Count 217 K/mm3 (140-440); Red Blood Count 4.74 M/mm3 (3.65-5.03)
[2018-09-06 01:54] LABS: Alanine Aminotransferase 21 units/L (7-56); Albumin 4.5 g/dL (3.9-5); BUN/Creatinine Ratio 18; Blood Urea Nitrogen 14 mg/dL (7-17); Calcium 9.8 mg/dL (8.4-10.2); Hemolysis Index 6
--- NOTE | 2018-09-06 02:48 | Cat Scan Report ---
PROCEDURE: CT ABDOMEN PELVIS W CON TECHNIQUE: Computerized axial tomography of the abdomen and pelvis was performed after the administr ation of IV iodinated nonionic contrast. CT DOSE LENGTH PRODUCT: 926.1 mGycm HISTORY: LLQ, suprapubic abd pain COMPARISONS: None . FINDINGS: Contrast-enhanced CT of the abdomen and pelvis was performed. The heart is normal in size. The lung bases appear clear. ABDOMEN: The contrast-enhanced liver, spleen, adrenal glands, pancreas, kidneys are unremarkable. The gallblad gael is within normal limits. There is wall thickening of the gastric antrum, axial image 66, consistent with gastritis. There is no small or large bowel obstruction. Pelvis: The appendix is probably seen, axial image 112, coronal images 49-50. There is no evidence of appendi citis. There is no evidence of diverticulitis. There is no adnexal mass. There is some mild stranding anterior the urinary bladder, axial images 145 -146 and cystitis is not excluded. IMPRESSION: ABDOMEN: No bowel obstruction Pelvis: Trace stranding anterior urinary bladder, suspicious for cystitis No evidence of diverticulitis This document is electronically signed by Keenan Baker MD., September 06 2018 02:45:47 AM ET
[2018-09-06 03:56] VITALS: BP 99/56
== END 2018-09-06 04:40 | disposition home or self-care (01) ==
LOC: ED 23:33
DX: N39.0 Urinary tract infection, site not specified (principal); K29.00 Acute gastritis without bleeding; K21.9 Gastro-esophageal reflux disease without esophagitis; G43.909 Migraine, unspecified, not intractable, without status migrainosus; Z86.2 Personal history of diseases of the blood and blood-forming organs and certain disorders involving the immune mechanism; F12.10 Cannabis abuse, uncomplicated; Z79.899 Other long term (current) drug therapy
CPT/HCPCS: 36415; 74177; 80053; 81001; 81025; 83690; 85025; 96374; 99284; J2405; J7030; Q9967

== ENCOUNTER 2018-11-19 15:08 | Emergency (ER) | payer SELFPAY ==
--- NOTE | 2018-11-19 15:16 | Emergency Department Report ---
Blank Doc - Documentation Documentation: 23-year-old female that presents with vaginal bleeding and pelvic pain. This initial assessment/diagnostic orders/clinical plan/treatment(s) is/are subject to change based on patient's health status, clinical progression and re- assessment by fellow clinical providers in the ED. Further treatment and workup at subsequent clinical providers discretion. Patient/guardians urged not to elope from the ED as their condition may be serious if not clinically assessed and managed. Initial orders include: 1- Patient sent to [facility] for further evaluation and treatment 2- labs 3- UA
[2018-11-19 15:35] VITALS: BP 96/42
[2018-11-19 15:53] LABS: Basophils % (Auto) 0.8 % (0.0-1.8); Eosinophils # (Auto) 0.1 K/mm3 (0.0-0.4); Eosinophils % (Auto) 2.7 % (0.0-4.3); Hematocrit 37.9 % (30.3-42.9); Hemoglobin 12.7 gm/dl (10.1-14.3); Lymphocytes # (Auto) 1.8 K/mm3 (1.2-5.4); Lymphocytes % (Auto) 34.4 % (13.4-35.0); Mean Corpuscular HGB Conc 33 % (30-34); Mean Corpuscular Volume 85 fl (79-97); Monocytes # (Auto) 0.4 K/mm3 (0.0-0.8); Monocytes % (Auto) 8.3 % (0.0-7.3); Platelet Count 225 K/mm3 (140-440); Red Blood Count 4.45 M/mm3 (3.65-5.03); Red Cell Distribution Width 15.1 % (13.2-15.2)
[2018-11-19] MEDS ORDERED: D50W (25GM) Syringe IV ONE (16:04)
[2018-11-19 16:12] LABS: BUN/Creatinine Ratio 17; Blood Urea Nitrogen 10 mg/dL (7-17); Calcium 9.3 mg/dL (8.4-10.2); Hemolysis Index 4
[2018-11-19 18:23] LABS: Bacteria,Urine 1+ /HPF (Negative); Bilirubin,Urine NEG (Negative); Blood,Urine LG (Negative); Color,Urine Amber (Yellow); Mucus,Urine 3+ /HPF
[2018-11-19] MEDS ORDERED: PROTONIX PO ONE (18:30)
--- NOTE | 2018-11-19 18:35 | Emergency Department Report ---
HPI - General Chief Complaint: Vaginal Bleeding Time Seen by Provider: 11/19/18 15:15 - HPI HPI: pT is a 23-year-old -[place] female comes to the ER today complaining of stomach growling and pain when she wakes up in the morning. She states that she has seen a GI doctor in the past and has had an upper and lower GI. She is on Pepcid at home but she does not take it consistently. She has had no vomiting of blood or melena stools. Patient is also complaining of dysfunctional uterine bleeding. She states that she has had a period off and on now for 3 weeks. She has not seen an ENVIRONMENTAL CONSERVATION PROFESSOR. She denies vaginal discharge or concerns for STI. She has no fever or chills. She denies abdominal or back pain. Patient has not followed up with her ENVIRONMENTAL CONSERVATION PROFESSOR since her last visit in the ER for which she was treated empirically for STI 4. Patient is ambulatory, nontoxic, talking on phone, taking by mouth. There is no life-threatening medical emergency on exam ED Past Medical Hx - Past Medical History Previous Medical History?: Yes Hx GERD: Yes Hx Headaches / Migraines: Yes Additional medical history: anemia, migraine SIDDIQUI. phosphorous depletion - Surgical History Past Surgical History?: No - Social History Smoking Status: Never Smoker Substance Use Type: None - Medications Home Medications: Home Medications Medication Instructions Recorded Confirmed Last Taken Type Terconazole [Terazol 7] 1 applic VG QHS 7 Days #7 07/03/18 Unknown Rx cream.appl metroNIDAZOLE [Metronidazole] 500 mg PO BID #14 tablet 07/03/18 Unknown Rx metroNIDAZOLE [Flagyl] 500 mg PO Q8HR #21 tablet 08/15/18 Unknown Rx Ciprofloxacin HCl [Ciprofloxacin 250 mg PO BID 3 Days #6 tablet 09/06/18 Unknown Rx TAB] Famotidine [Pepcid] 20 mg PO BID #60 tablet 09/06/18 Unknown Rx Pantoprazole [Protonix] 40 mg PO QDAY #30 tablet 11/19/18 Unknown Rx ED Review of Systems ROS: Stated complaint: PID/ABD PAIN/STOMACH ULCER Other details as noted in HPI Comment: All other systems reviewed and negative Physical Exam - Physical Exam Vital Signs: Vital Signs 11/19/18 15:34 Temperature 98.7 F Pulse Rate 102 H Respiratory 16 Rate Blood Pressure 96/42 [Left] O2 Sat by Pulse 98 Oximetry Physical Exam: ALERT AND ORIENTED X 4 S1S2 LUNGS CTA ABD SNT NO CVA TENDERNESS AMBULATORY TAKING PO ED Course Vital Signs 11/19/18 15:34 Temperature 98.7 F Pulse Rate 102 H Respiratory 16 Rate Blood Pressure 96/42 [Left] O2 Sat by Pulse 98 Oximetry ED Medical Decision Making - Lab Data Result diagrams: 11/19/18 15:36 11/19/18 15:36 - Medical Decision Making Lab Results 11/19/18 11/19/18 11/19/18 Range/Units 15:36 15:36 15:36 WBC 5.2 (4.5-11.0) K/mm3 RBC 4.45 (3.65-5.03) M/mm3 Hgb 12.7 (10.1-14.3) gm/dl Hct 37.9 (30.3-42.9) % MCV 85 (79-97) fl MCH 29 (28-32) pg MCHC 33 (30-34) % RDW 15.1 (13.2-15.2) % Plt Count 225 (140-440) K/mm3 Lymph % (Auto) 34.4 (13.4-35.0) % [place] % (Auto) 8.3 H (0.0-7.3) % Eos % (Auto) 2.7 (0.0-4.3) % Baso % (Auto) 0.8 (0.0-1.8) % Lymph # 1.8 (1.2-5.4) K/mm3 [place] # 0.4 (0.0-0.8) K/mm3 Eos # 0.1 (0.0-0.4) K/mm3 Baso # 0.0 (0.0-0.1) K/mm3 Seg Neutrophils % 53.8 (40.0-70.0) % Seg Neutrophils # 2.8 (1.8-7.7) K/mm3 Sodium 142 (137-145) mmol/L Potassium 3.4 L (3.6-5.0) mmol/L Chloride 103.2 (98-107) mmol/L Carbon Dioxide 25 (22-30) mmol/L Anion Gap 17 mmol/L BUN 10 (7-17) mg/dL Creatinine 0.6 L (0.7-1.2) mg/dL Estimated GFR > 60 ml/min BUN/Creatinine Ratio 17 % Glucose 97 (65-100) mg/dL Calcium 9.3 (8.4-10.2) mg/dL HCG, Qual Negative (Negative) Urine Color (Yellow) Urine Turbidity (Clear) Urine pH (5.0-7.0) Ur Specific [place] (1.003-1.030) Urine Protein (Negative) mg/dL Urine Glucose (UA) (Negative) mg/dL Urine Ketones (Negative) mg/dL Urine Blood (Negative) Urine Nitrite (Negative) Urine Bilirubin (Negative) Urine Urobilinogen (<2.0) mg/dL Ur Leukocyte Esterase (Negative) Urine WBC (Auto) (0.0-6.0) /HPF Urine RBC (Auto) (0.0-6.0) /HPF U Epithel Cells (Auto) (0-13.0) /HPF Urine Bacteria (Auto) (Negative) /HPF Urine Mucus /HPF 11/19/18 Range/Units 17:45 WBC (4.5-11.0) K/mm3 RBC (3.65-5.03) M/mm3 Hgb (10.1-14.3) gm/dl Hct (30.3-42.9) % MCV (79-97) fl MCH (28-32) pg MCHC (30-34) % RDW (13.2-15.2) % Plt Count (140-440) K/mm3 Lymph % (Auto) (13.4-35.0) % [place] % (Auto) (0.0-7.3) % Eos % (Auto) (0.0-4.3) % Baso % (Auto) (0.0-1.8) % Lymph # (1.2-5.4) K/mm3 [place] # (0.0-0.8) K/mm3 Eos # (0.0-0.4) K/mm3 Baso # (0.0-0.1) K/mm3 Seg Neutrophils % (40.0-70.0) % Seg Neutrophils # (1.8-7.7) K/mm3 Sodium (137-145) mmol/L Potassium (3.6-5.0) mmol/L Chloride (98-107) mmol/L Carbon Dioxide (22-30) mmol/L Anion Gap mmol/L BUN (7-17) mg/dL Creatinine (0.7-1.2) mg/dL Estimated GFR ml/min BUN/Creatinine Ratio % Glucose (65-100) mg/dL Calcium (8.4-10.2) mg/dL HCG, Qual (Negative) Urine Color [place] (Yellow) Urine Turbidity Cloudy (Clear) Urine pH 5.0 (5.0-7.0) Ur Specific [place] 1.030 (1.003-1.030) Urine Protein 100 mg/dl (Negative) mg/dL Urine Glucose (UA) Neg (Negative) mg/dL Urine Ketones 20 (Negative) mg/dL Urine Blood Lg (Negative) Urine Nitrite Neg (Negative) Urine Bilirubin Neg (Negative) Urine Urobilinogen 2.0 (<2.0) mg/dL Ur Leukocyte Esterase Sm (Negative) Urine WBC (Auto) 60.0 H (0.0-6.0) /HPF Urine RBC (Auto) 116.0 (0.0-6.0) /HPF U Epithel Cells (Auto) 16.0 H (0-13.0) /HPF Urine Bacteria (Auto) 1+ (Negative) /HPF Urine Mucus 3+ /HPF Vital Signs 11/19/18 15:34 Temperature 98.7 F Pulse Rate 102 H Respiratory 16 Rate Blood Pressure 96/42 [Left] O2 Sat by Pulse 98 Oximetry HR 90 ON EXAM PREG NEG DISCUSSED WITH PT DUB AND NEED TO SEE OBGYN SHE IS NOT TAKING HER PEPCID DAILY - SHE HAS BEEN TOLD TO TAKE IT DAILY AND FOLLOW UP WITH HER PCP. SHE HAS NO VAG DISCHARGE OR DYSURIA. SHE IS NOT CONCERNED FOR STI. SHE PER EMR HAS BEEN TREATED FOR STI IN PAST. NO FEVER OR CHILLS. HER PAIN IS EPIGASTRIC IN NATURE. PT HAS RECURRENT UTI'S- WITH WBC IN HER URINE. SADIE HAD LONG DISCUSSION WITH PT SHE WILL FOLLOW UP WITH HER OBGYN TO EVALUATE HER DUB. VSS NONTOXIC H/H STABLE NO FEVER TAKING PO NO LIFE THREAT NOTED. DC HOME - Differential Diagnosis RO ; RO ANEMIA Critical care attestation.: If time is entered above; I have spent that time in minutes in the direct care of this critically ill patient, excluding procedure time. ED Disposition Clinical Impression: DUB (dysfunctional uterine bleeding) Disposition: DC-01 TO HOME OR SELFCARE Is pt being admited?: No Does the pt Need Aspirin: No Condition: Stable Instructions: Dysfunctional Uterine Bleeding (ED), Peptic Ulcer (ED) Prescriptions: Pantoprazole [Protonix] 40 mg PO QDAY #30 tablet Referrals: ELENO CAM MD [Staff Physician] - 3-5 Days TRINA DUNN MD [Staff Physician] - 3-5 Days BETO VILLALOBOS MD [Staff Physician] - 3-5 Days LIZ ESTRADA MD [Staff Physician] - 3-5 Days Time of Disposition: 18:33
== END 2018-11-19 19:19 | disposition home or self-care (01) ==
LOC: ED 15:08
DX: N93.8 Other specified abnormal uterine and vaginal bleeding (principal); K21.9 Gastro-esophageal reflux disease without esophagitis; G43.909 Migraine, unspecified, not intractable, without status migrainosus; D64.9 Anemia, unspecified; Z79.899 Other long term (current) drug therapy
CPT/HCPCS: 36415; 80048; 81001; 84703; 85025; 87086